=== PATIENT | female | born 1965 | race Caucasian/White ===

== ENCOUNTER 2020-07-14 10:26 | Emergency (ER) | payer SELFPAY ==
[2020-07-14 11:09] LABS: Urine Blood 2+ (Negative); Urine Glucose Negative (Negative); Urine Protein 1+ (Negative); Urine pH 5.5 (5.0-7.0)
[2020-07-14 11:25] LABS: Absolute Lymphocytes (CBC) 1.8 K/uL (0.7-4.9); Basophils % 0.6 % (0-1.3); Hematocrit 40.3 % (36.0-45.0); Lymphocytes % 14.9 % (15.3-44.8); MPV 9.2 fL (7.6-11.3); RBC Red Blood Cell Count 4.64 M/uL (3.86-4.86)
[2020-07-14 11:37] LABS: ALT/SGPT 22 U/L (12-78); AST/SGOT 10 U/L (15-37); Albumin 3.9 g/dL (3.4-5.0); Alkaline Phosphatase 57 U/L (45-117); BUN Blood Urea Nitrogen 4 mg/dL (7-18); Bicarbonate 29 mmol/L (21-32); Bilirubin Direct 0.2 mg/dL (0-0.2); Bilirubin Total 0.5 mg/dL (0.2-1.0); Glucose Level 100 mg/dL (74-106); Lipase 27 U/L (73-393); Potassium 3.7 mmol/L (3.5-5.1); Protein, Total 7.7 g/dL (6.4-8.2); Sodium Level 135 mmol/L (136-145)
[2020-07-14] MEDS ORDERED: NA CHLORIDE 0.9% 1,000 ML ONE (11:41)
[2020-07-14] MEDS ORDERED: MORPHINE 4 MG/ML SYR ONE (11:41)
[2020-07-14] MEDS ORDERED: ONDANSETRON 4 MG/2 ML VIAL ONE (11:41)
--- NOTE | 2020-07-14 11:56 | RAD REPORT ---
EXAM DESCRIPTION: CT - Abdomen Pelvis W Contrast - 07/14/2020 11:38 am CLINICAL HISTORY: Abdominal pain/right flank pain COMPARISON: none. TECHNIQUE: Computed axial tomography of the abdomen pelvis was obtained. 100 cc Isovue-300 was admin istered intravenously. Oral contrast was not requested which limits evaluation of bowel. All CT scans are performed using dose optimization technique as appropriate and may include automated exposure control or mA/KV adjustment according to patient size. FINDINGS: Multiple hepatic cysts. Multiple additional tiny low-density lesions are too small to piotr acterize by CT criteria The spleen, pancreas, adrenals and left kidney are unremarkable Several low to intermediate density areas within right kidney reaching the periphery. This likely ind icates pyelonephritis. No abscess seen. There is no evidence of diverticulitis. Normal appendix Thickening of the wall of the stomach IMPRESSION: Moderate right pyelonephritis Thickening of the wall of the stomach may be secondary to incomplete distention or pathology such as inflammation
[2020-07-14] MEDS ORDERED: CEFTRIAXONE/SWI 1gm 1 GM/10 ML SYR ONE (12:00)
--- NOTE | 2020-07-14 12:17 | RAD REPORT ---
EXAM DESCRIPTION: US - Abdomen Exam Limited - 07/14/2020 12:06 pm CLINICAL HISTORY: Abdominal pain. COMPARISON: None. FINDINGS: The gallbladder wall is not thickened. A gallstone is not seen. The biliary tree is normal caliber. Hepatic cysts IMPRESSION: Unremarkable gallbladder ultrasound.
--- NOTE | 2020-07-14 12:28 | EDPHYS ---
Physician Documentation [facility] Name: Niki Camacho Age: 54 yrs Sex: Female : 1965 Arrival Date: 07/14/2020 Time: 10:30 Bed 14 Private MD: ED Physician Merrick Carrion HPI: 07/14 10:57 This 54 yrs old Female presents to ER via Ambulatory with complaints of Side ma2 Pain. 10:57 Onset: The symptoms/episode began/occurred gradually, 2 day(s) ago. Associated signs ma2 and symptoms: Pertinent negatives: dysuria, urinary frequency, headache, hematuria. Severity of pain: At its worst the pain was moderate in the emergency department the pain is unchanged. The patient has not experienced similar symptoms in the past. Historical: - Allergies: 10:47 No Known Allergies; hb - Home Meds: 10:47 Synthroid Oral [Active]; hb - PMHx: 10:47 None; hb - PSHx: 10:47 thyroid; hb - Immunization history:: Adult Immunizations up to date. - Social history:: Smoking status: Patient denies any tobacco usage or history of. - Family history:: not pertinent. ROS: 10:57 Constitutional: Negative for fever, chills, and weight loss. ma2 10:57 All other systems are negative. Exam: 10:57 Constitutional: This is a well developed, well nourished patient who is awake, alert, ma2 and in no acute distress. ENT: Nares patent. No nasal discharge, no septal abnormalities noted. Tympanic membranes are normal and external auditory canals are clear. Oropharynx with no redness, swelling, or masses, exudates, or evidence of obstruction, uvula midline. Mucous membranes moist. Neck: Trachea midline, no thyromegaly or masses palpated, and no cervical lymphadenopathy. Supple, full range of motion without nuchal rigidity, or vertebral point tenderness. No Meningismus. Chest/axilla: Normal chest wall appearance and motion. Nontender with no deformity. No lesions are appreciated. Cardiovascular: Regular rate and rhythm with a normal S1 and S2. No gallops, murmurs, or rubs. Normal PMI, no JVD. No pulse deficits. Respiratory: Lungs have equal breath sounds bilaterally, clear to auscultation and percussion. No rales, rhonchi or wheezes noted. No increased work of breathing, no retractions or nasal flaring. Abdomen/GI: Soft, non-tender, with normal bowel sounds. No distension or tympany. No guarding or rebound. She is tender in ruq however No evidence of tenderness otherwhere else. Back: she has right flank ttp No spinal tenderness. . Full range of motion. Skin: Warm, dry with normal turgor. Normal color with no rashes, no lesions, and no evidence of cellulitis. Neuro: Awake and alert, GCS 15, oriented to person, place, time, and situation. Cranial nerves II-XII grossly intact. Motor strength 5/5 in all extremities. Sensory grossly intact. Cerebellar exam normal. Normal gait. Vital Signs: 10:45 BP 116 / 87; Pulse 84; Resp 16; Temp 98.2; Pulse Ox 100% on R/A; Weight 54.43 kg; hb Height 5 ft. 7 in. (170.18 cm); Pain 8/10; 10:45 Body Mass Index 18.79 (54.43 kg, 170.18 cm) hb MDM: 10:42 Patient medically screened. wv2 10:57 Differential diagnosis: nephrolithiasis, pyelonephritis, UTI, pancreatitis. [facility] 12:27 Data reviewed: vital signs, nurses notes. Counseling: I had a detailed discussion with ma2 the patient and/or guardian regarding: the historical points, exam findings, and any diagnostic results supporting the discharge/admit diagnosis, the presence of at least one elevated blood pressure reading (>120/80) during this emergency department visit, the need for outpatient follow up. Response to treatment: the patient's symptoms have markedly improved after treatment. 07/14 10:57 Order name: Basic Metabolic Panel; Complete Time: 12:27 [facility] 07/14 10:57 Order name: CBC with Diff; Complete Time: 12:27 [facility] 07/14 10:57 Order name: Hepatic Function; Complete Time: 12:27 [facility] 07/14 10:57 Order name: Lipase; Complete Time: 12:27 [facility] 07/14 11:09 Order name: Urine Dipstick-Ancillary; Complete Time: 11:20 [facility] 07/14 11:37 Order name: CREATININE WHOLE BLOOD; Complete Time: 12:27 [facility] 07/14 10:57 Order name: US Abdomen Limited; Complete Time: 12:27 ma2 07/14 10:57 Order name: IV Saline Lock; Complete Time: 11:10 ma2 07/14 10:57 Order name: CT Abd/Pelvis - IV Contrast Only; Complete Time: 12:27 ma2 07/14 10:57 Order name: Labs collected and sent; Complete Time: 11:10 ma2 07/14 10:57 Order name: Urine Dipstick-Ancillary (obtain specimen); Complete Time: 11:10 ma2 Administered Medications: 11:26 Drug: morphine 4 mg Route: IVP; Site: right antecubital; tr6 12:30 Follow up: Response: No adverse reaction tr6 11:26 Drug: Zofran (Ondansetron) 4 mg Route: IVP; Site: right antecubital; tr6 12:30 Follow up: Response: No adverse reaction tr6 11:27 Drug: NS 0.9% 1000 ml Route: IV; Rate: 1 bolus; Site: right antecubital; tr6 12:30 Follow up: IV Status: Completed infusion; IV Intake: 1000ml tr6 12:31 Follow up: Response: No adverse reaction tr6 11:44 Drug: Rocephin (cefTRIAXone) 1 grams Route: IV; Rate: calculated rate; Site: right tr6 antecubital; 12:30 Follow up: Response: No adverse reaction tr6 Disposition: 07/14/20 12:28 Discharged to Home. Impression: Cystitis, unspecified - with right pyelonephritis. - Condition is Stable. - Discharge Instructions: Urinary Tract Infection, Adult, [id number]. - Prescriptions for Zofran 8 mg Oral Tablet - take 1 tablet by ORAL route every 12 hours As needed; 20 tablet. Diclofenac Sodium 75 mg Oral Tablet Sustained Release - take 1 tablet by ORAL route 2 times per day; 30 tablet. Bactrim DS 800- 160 mg Oral Tablet - take 1 tablet by ORAL route every 12 hours for 10 days; 20 tablet. - Medication Reconciliation Form, Thank You Letter, Antibiotic Education, Prescription Opioid Use form. - Follow up: Private Physician; When: Tomorrow; Reason: If symptoms return, Continuance of care. Signatures: Dispatcher [employer] EDVal Soriano RN RN Merrick Carrion MD MD ma2 Marilyn Martin, RN RN tr6 Corrections: (The following items were deleted from the chart) 12:06 10:58 Liver Only+US.ALLEN ordered. EDMI EDMS 12:43 12:28 07/14/2020 12:28 Discharged to Home. Impression: Cystitis, unspecified - with tr6 right pyelonephritis. Condition is Stable. Forms are Medication Reconciliation Form, Thank You Letter, Antibiotic Education, Prescription Opioid Use. Follow up: Private Physician; When: Tomorrow; Reason: If symptoms return, Continuance of care. ma2
--- NOTE | 2020-07-14 12:28 | ER ---
Nurse's Notes [facility] Name: Niki Camacho Age: 54 yrs Sex: Female : 1965 Arrival Date: 07/14/2020 Time: 10:30 Bed 14 Private MD: Diagnosis: Cystitis, unspecified-with right pyelonephritis Presentation: 07/14 10:45 Chief complaint: Sharp right flank pain x 6 weeks, chills and nausea x 1 week. hb Coronavirus screen: At this time, the client does not indicate any symptoms associated with coronavirus-19. Ebola Screen: No symptoms or risks identified at this time. Initial Sepsis Screen: Does the patient meet any 2 criteria? No. Patient's initial sepsis screen is negative. Does the patient have a suspected source of infection? No. Patient's initial sepsis screen is negative. Risk Assessment: Do you want to hurt yourself or someone else? Patient reports no desire to harm self or others. Onset of symptoms was June 2020. 10:45 Method Of Arrival: Ambulatory hb 10:45 Acuity: NADIA 3 hb Triage Assessment: 11:11 General: Appears in no apparent distress. comfortable, Behavior is calm, cooperative, tr6 appropriate for age. Pain: Complains of pain in right flank radiating to right lower back Pain began gradually, pt states pain has been present since beginning of may. EENT: No deficits noted. Neuro: No deficits noted. Cardiovascular: No deficits noted. Respiratory: No deficits noted. GI: No deficits noted. : Reports burning with urination, urgency, urinary frequency, urgency, frequency, but does not urinate large amounts. Derm: No deficits noted. Musculoskeletal: No deficits noted. Historical: - Allergies: 10:47 No Known Allergies; hb - Home Meds: 10:47 Synthroid Oral [Active]; hb - PMHx: 10:47 None; hb - PSHx: 10:47 thyroid; hb - Immunization history:: Adult Immunizations up to date. - Social history:: Smoking status: Patient denies any tobacco usage or history of. - Family history:: not pertinent. Screenin:11 Abuse screen: Denies threats or abuse. Denies injuries from another. Nutritional tr6 screening: No deficits noted. Tuberculosis screening: No symptoms or risk factors identified. Fall Risk None identified. Assessment: 10:47 Reassessment: MD Lopez at bedside. tr6 Vital Signs: 10:45 BP 116 / 87; Pulse 84; Resp 16; Temp 98.2; Pulse Ox 100% on R/A; Weight 54.43 kg; hb Height 5 ft. 7 in. (170.18 cm); Pain 8/10; 10:45 Body Mass Index 18.79 (54.43 kg, 170.18 cm) hb ED Course: 10:30 Patient arrived in ED. ds1 10:42 Merrick Carrion MD is Attending Physician. ma2 10:46 Triage completed. hb 10:47 Marilyn Martin, CAT is Primary Nurse. tr6 10:47 Arm band placed on. hb 11:10 No provider procedures requiring assistance completed. Inserted saline lock: 18 gauge tr6 in right antecubital area, using aseptic technique. Blood collected. 11:11 Patient has correct armband on for positive identification. Bed in low position. Call tr6 light in reach. Side rails up X 1. 11:38 CT Abd/Pelvis - IV Contrast Only In Process Unspecified. EDMS 12:06 US Abdomen Limited In Process Unspecified. EDMS 12:29 IV discontinued, intact, bleeding controlled, No redness/swelling at site. Pressure tr6 dressing applied. Administered Medications: 11:26 Drug: morphine 4 mg Route: IVP; Site: right antecubital; tr6 12:30 Follow up: Response: No adverse reaction tr6 11:26 Drug: Zofran (Ondansetron) 4 mg Route: IVP; Site: right antecubital; tr6 12:30 Follow up: Response: No adverse reaction tr6 11:27 Drug: NS 0.9% 1000 ml Route: IV; Rate: 1 bolus; Site: right antecubital; tr6 12:30 Follow up: IV Status: Completed infusion; IV Intake: 1000ml tr6 12:31 Follow up: Response: No adverse reaction tr6 11:44 Drug: Rocephin (cefTRIAXone) 1 grams Route: IV; Rate: calculated rate; Site: right tr6 antecubital; 12:30 Follow up: Response: No adverse reaction tr6 Intake: 12:30 IV: 1000ml; Total: 1000ml. tr6 Outcome: 12:28 Discharge ordered by . ma2 12:29 Discharged to home ambulatory. tr6 12:29 Condition: good 12:29 Discharge instructions given to patient, Instructed on discharge instructions, follow up and referral plans. medication usage, safety practices, Demonstrated understanding of instructions, follow-up care, medications. 12:43 Prescriptions given X 3. tr6 12:43 Patient left the ED. tr6 Signatures: Dispatcher [employer] EDAL Maria Velazquez ds1 Val Montilla RN RN Merrick Carrion MD MD ma2 Marilyn Martin RN RN tr6
[2020-07-14 12:54] VITALS: BP 116/87; TEMP 98.2; O2SAT 100
== END 2020-07-14 12:43 | disposition home or self-care (01) ==
LOC: ER 10:26
DX: N12 Tubulo-interstitial nephritis, not specified as acute or chronic (principal); N30.90 Cystitis, unspecified without hematuria
CPT/HCPCS: 36415; 74177; 76705; 80048; 80076; 81003; 82565; 83690; 85025; 96361; 96374; 96375; 99284; J0696; J2405; J7030; Q9967